=== PATIENT | female | born 1940 | race Asian ===

== ENCOUNTER 2018-12-18 23:08 | Emergency (ER) | payer MEDICARE, OTHER ==
[~2018-12-18] VITALS: Ht 160 cm; Wt 56.7 kg
[~2018-12-18 23:08] MED LIST: AMLODIPINE BESYL5 MG ORAL; CELEBREX200 MG ORAL; CYCLOBENZAPRINE10 MG ORAL; VITAMIN D1000 UNI1 ORAL; ZYPREXA10 MG ORAL
--- NOTE | 2018-12-18 23:10 | NUR ---
ED Nurse Note: Received report. Pt BIBA from [facility], AAOx2-3 with confusion, Nepali speaking but understands some Hebrew. Ambulance personnel stated SNF stated pt may have fell 3 days ago and that pt has pain in left hip. No distress noted. Will assess and carry out ERMD's orders.
[2018-12-18 23:30] VITALS: BP 151/72
[2018-12-18] MEDS ORDERED: Morphine Sulfate 2mg/ml Inj(IV/IM USE ONLY) IVP ONE (23:30)
[2018-12-18 23:40] LABS: APPEARANCE,URINE CLEAR; BILIRUBIN, URINE NEGATIVE (NEGATIVE); GLUCOSE, URINE (UA) NEGATIVE (NEGATIVE); KETONES,URINE 2+ (NEGATIVE); LEUKOCYTE ESTERASE ,URINE 1+ (NEGATIVE); NITRITE,URINE NEGATIVE (NEGATIVE); PH,URINE 7 (4.5-8.0); PROTEIN,URINE NEGATIVE (NEGATIVE); UROBILINOGEN,URINE 4 MG/DL (0.0-1.0)
[2018-12-18 23:41] LABS: COLOR,URINE YELLOW
[2018-12-18] MEDS ORDERED: Morphine Sulfate 2mg/ml Inj(IV/IM USE ONLY) ONE (23:41)
[2018-12-18 23:42] LABS: BASOPHILS % (AUTO) 0.3 % (0.0-2.0); EOSINOPHILS % (AUTO) 0.7 % (0.0-3.0); HEMATOCRIT 28.4 % (37.0-47.0); LYMPHOCYTES % (AUTO) 20.5 % (20.0-45.0); MEAN CORPUSCULAR VOLUME 87 FL (80-99); MONOCYTES % (AUTO) 8.6 % (1.0-10.0); NEUTROPHILS % (AUTO) 69.9 % (45.0-75.0); PLATELET COUNT 413 K/UL (150-450); RED BLOOD COUNT 3.26 M/UL (4.20-5.40); RED CELL DISTRIBUTION WIDTH 12.3 % (11.6-14.8); WHITE BLOOD COUNT 12.8 K/UL (4.8-10.8)
[2018-12-18 23:49] LABS: ANION GAP 9 mmol/L (5-15); BLOOD UREA NITROGEN 13 mg/dL (7-18); CALCIUM 7.8 MG/DL (8.5-10.1); CARBON DIOXIDE 26 MMOL/L (21-32); CHLORIDE 106 MMOL/L (98-107); CREATININE 0.6 MG/DL (0.55-1.30); POTASSIUM 3.5 MMOL/L (3.5-5.1); SODIUM 140 MMOL/L (136-145)
[2018-12-19 00:30] VITALS: BP 115/71
--- NOTE | 2018-12-19 00:40 | NUR ---
ED Nurse Note: Awaiting room for pt on med/surg unit. CN aware.
--- NOTE | 2018-12-19 00:54 | NUR ---
ED Nurse Note: SPOKE WITH RADHAMES RONQUILLO OF [facility]. INFORMED PT WILL BE RETURNED TO FACILITY PER [facility]ETT AND DIANA FLORES MD.
[2018-12-19] MEDS ORDERED: HYDROCODON-ACE1 EA15 ORAL (01:09)
--- NOTE | 2018-12-19 01:09 | Emergency Room Report ---
History of Present Illness General Chief Complaint: Multiple Trauma/Fall Source: Medical Record, EMS, PMD Present Illness HPI Is a 78-year-old female with history of schizophrenia, diabetes, high blood pressure. She presents with chief complaint of left hip pain. History limited on this patient because is a poor historian. History is through the shelter note, shelter staff and primary care doctor. Patient had a history of left hip replacement. She fell about 2 weeks ago and complaining of left hip pain. X-ray showed a left hip fracture and patient was sent to [facility] last week. She was scheduled for possible surgery there. A Bioethics consult was done and patient deemed to be competent to refuse surgery. Patient was sent back to shelter today. She was complaining of hip pain and was sent here to be evaluated. There was no new trauma. No fever chills but no nausea no vomiting. Worse with movement. Allergies: Coded Allergies: No Known Allergies (Unverified , 04/13/16) Patient History Past Medical History: see triage record, old chart reviewed Past Surgical History: other Pertinent Family History: none Social History: Denies: smoking Last Menstrual Period: n/a Now: No Immunizations: UTD Reviewed Nursing Documentation: PMH: Agreed; PSxH: Agreed Nursing Documentation-PMH Past Medical History: No History, Except For Hx Diabetes: Yes Hx Cerebrovascular Accident: Yes - Left sided weakness Review of Systems Eye: Denies: eye pain, blurred vision ENT: Denies: ear pain, nose congestion, throat swelling Respiratory: Denies: cough, shortness of breath Cardiovascular: Denies: chest pain, palpitations Gastrointestinal: Denies: abdominal pain, diarrhea, nausea, vomiting Musculoskeletal: Reports: joint pain; Denies: back pain Skin: Denies: rash Neurological: Denies: headache, numbness Endocrine: Denies: increased thirst, increased urine Hematologic/Lymphatic: Denies: easy bruising All Other Systems: negative except mentioned in HPI Physical Exam Vital Signs Date Time Temp Pulse Resp B/P (MAP) Pulse Ox O2 Delivery O2 Flow Rate FiO2 12/18/18 23:08 99.7 106 18 93 Room Air 12/18/18 23:30 151/72 vitals unremarkable Sp02 EP Interpretation: reviewed, normal General Appearance: well appearing, no apparent distress, alert, thin Head: normocephalic, atraumatic Eyes: bilateral eye PERRL, bilateral eye EOMI ENT: hearing grossly normal, normal pharynx Neck: full range of motion, supple, no meningismus Respiratory: chest non-tender, lungs clear, normal breath sounds Cardiovascular #1: regular rate, rhythm, no murmur Gastrointestinal: normal bowel sounds, non tender, no mass, no organomegaly, no bruit, non-distended Musculoskeletal: back normal, tender - Tender over left hip Neurologic: alert Psychiatric: mood/affect normal Skin: warm/dry Medical Decision Making Diagnostic Impression: Primary Impression: Fracture of prosthetic hip Qualified Codes: T84.019A - Broken internal joint prosthesis, unspecified site , initial encounter; Z96.649 - Presence of unspecified artificial hip joint ER Course Patient presents with a left hip fracture. This is over the prosthesis. Patient is stable. After discussing with Dr. Yao, who said that family and patient did not want surgery, patient will be sent back to shelter. No evidence of any infection. This patient is high risk for disability and increased risks of DVT. Chest X-Ray Diagnostic Results Chest X-Ray Diagnostic Results : Chest X-Ray Ordered: Yes # of Views/Limited/Complete: 1 View Indication: Other EP Interpretation: Yes Interpretation: no consolidation, no effusion, no pneumothorax, no acute cardiopulmonary disease Impression: No acute disease Electronically Signed by: Nima Ivory MD Other X-Ray Diagnostic Results Other X-Ray Diagnostic Results : X-Ray ordered: Left hip xrays # of Views/Limited Vs Complete: 3 View Indication: Pain EP Interpretation: Yes Interpretation: no dislocation, no soft tissue swelling, other - left femur frx at prosthesis. Impression: Other - Left femur frx Electronically Signed by: Nima Ivory MD Last Vital Signs Date Time Temp Pulse Resp B/P (MAP) Pulse Ox O2 Delivery O2 Flow Rate FiO2 12/19/18 00:29 106 18 Room Air 12/19/18 00:15 99.7 12/18/18 23:30 151/72 93 Status: improved Disposition: XFER SNF Condition: Stable Scripts Hydrocodone/Acetaminophen 5-325* (HYDROCODONE/ACETAMINOPHEN 5-325*) 1 Each Tablet 1 TAB ORAL Q6H PRN for For Pain, #30 TAB 0 Refills Prov: Nima Ivory MD 12/19/18 Referrals: Addison Caballero MD (PCP) Additional Instructions: Follow-up with your doctor in 7 days. Nonweightbearing. Return if symptom worsen. Nima Ivory MD December 19, 2018 01:09
[2018-12-19 02:00] VITALS: BP 120/56
[2018-12-19 02:05] VITALS: BP 120/56
--- NOTE | 2018-12-19 02:05 | NUR ---
ED Nurse Note: Pt cleared by health care Provider for discharge. DC instructions/prescription was given and explained to ambulance personnel and since pt unable to verbalize understanding of teachings (Khmer speaking). All medical deviecs such as ID band, IV removed. Pt is AAO x2-3 and left with all personal belongings via transport.
--- NOTE | 2018-12-19 11:52 | Diagnostic Imaging Report ---
Indication: Altered mental status Technique: XRAY Chest 1v Comparison: None Findings: Patient rotated to the left. Heart size within normal limits for AP technique. Calcifications noted in the aorta. There is no focal airspace consolidation. No pleural effusion or pneumothorax. Some subcentimeter nodular densities are noted in the right upper lung. Multiple thin possibly metallic linear radiodensities project over the chest which are thought to be external to the patient however correlation with physical exam is recommended. No acute osseous abnormality identified. Impression: Limited exam given patient rotation. No focal airspace consolidation, pleural effusion or pneumothorax. Multiple thin linear, possibly metallic radiodensities project over the chest and abdomen. These are likely external to the patient however correlation with physical exam is recommended. This is discrepant from the preliminary interpretation of the treating ER clinician. Findings discussed with Dr. Reeder of the ED the morning of 12/19/2018.
--- NOTE | 2018-12-19 11:54 | Diagnostic Imaging Report ---
Indication: Trauma, pain Technique: XRAY Hip Routine 2v+ w/Pelv-L Comparison: 04/13/2016 Findings: Patient is status post left hip arthroplasty. There is acute appearing periprosthetic fracture of the left femur. Measures displaced and comminuted. The prosthetic femoral head remains well-seated in the acetabulum. Symphysis pubis is maintained. Multiple thin linear metallic radiodensities project over the pelvis and upper abdomen, likely external to the patient - correlation with physical exam is recommended. Impression: Acute appearing periprosthetic fracture of the left femur. Salient findings correspond with the preliminary interpretation of the treating ER clinician.
== END 2018-12-19 02:05 ==
LOC: EDBD 23:08 → EMR 23:22
DX: T84.011A Broken internal left hip prosthesis, initial encounter (principal); E11.9 Type 2 diabetes mellitus without complications; G81.94 Hemiplegia, unspecified affecting left nondominant side; F20.9 Schizophrenia, unspecified; W19.XXXA Unspecified fall, initial encounter; Y92.9 Unspecified place or not applicable
CPT/HCPCS: 36415; 71045; 73502; 80048; 81001; 85025; 85610; 85730; 96374; 96375; 99284; J2270; J2405